=== PATIENT | female | born 1945 | race Caucasian/White ===

== ENCOUNTER 2017-01-07 05:14 | Day surgery (SDC) | payer OTHER ==
--- NOTE | 2017-01-06 13:38 | EKG Report ---
Test Performed on : 01/06/2017 12:52:24 PM Test Reason : PAT Blood Pressure : / mmHG Vent. Rate : 075 BPM Atrial Rate : 075 BPM P-R Int : 166 ms QRS Dur : 082 ms QT Int : 394 ms P-R-T Axes : 046 056 040 degrees QTc Int : 439 ms Normal sinus rhythm. Normal ECG No previous ECGs available Confirmed by Gideon Greco MD ([id number]) on 01/06/2017 9:57:17 PM
[2017-01-06 13:45] LABS: HEMATOCRIT 40.6 % (37.0-47.0); MCH 31.9 PG (27-31); MCHC 34.5 g/dL (33-37); MCV 92.5 FL (81-99); MPV 10.7 FL (7.4-10.4); RBC 4.39 XMIL (4.2-5.4)
[2017-01-06 13:54] LABS: AGAP 10; BUN 17 mg/dL (8-22); CALCIUM 9.4 mg/dL (8.8-10.2); CHLORIDE 103 mmol/L (98-107); COSMO 278; POTASSIUM 3.9 mmol/L (3.5-5.1); SODIUM 139 mmol/L (136-145); TCO2 26 mmol/L (25-35)
[2017-01-06 14:07] LABS: ALBUMIN 4.3 g/dL (3.5-5.0); ALKALINE PHOSPHATASE 39 U/L (32-104); DIRECT BILIRUBIN < 0.20 mg/dL (0.00-0.20); GOT 21 U/L (10-30); GPT 16 U/L (10-36); LIPASE 25 U/L (13-60); TOTAL PROTEIN 7.2 g/dL (6.3-8.3)
[2017-01-07] MEDS ORDERED: REGLAN ONE (05:24)
[2017-01-07] MEDS ORDERED: PEPCID ONE (05:24)
[2017-01-07] MEDS ORDERED: LR 1,000 ML ONE ×3 (05:24→09:33)
[2017-01-07] MEDS ORDERED: KEFZOL 1 GM/D5W 50 ML ONE (05:25)
[2017-01-07] MEDS ORDERED: SODIUM CHLORIDE 0.9% ONE (06:24)
[2017-01-07] MEDS ORDERED: MARCAINE 0.25% PF/EPI 1:200,000 ONE (06:25)
[2017-01-07] MEDS ORDERED: DIPRIVAN 1% ONE (06:54)
[2017-01-07] MEDS: MORPHINE ONE ×4 (09:05→09:42)
[2017-01-07] MEDS ORDERED: PHENERGAN ONE (09:21)
[2017-01-07] MEDS ORDERED: DECADRON ONE (09:33)
[2017-01-07] MEDS ORDERED: QUELICIN (DOSE) ONE (09:33)
[2017-01-07] MEDS ORDERED: XYLOCAINE-MPF 2% ONE (09:33)
[2017-01-07] MEDS ORDERED: ZOFRAN ONE ×2 (09:33→11:56)
[2017-01-07] MEDS ORDERED: NORCURON ONE (09:33)
[2017-01-07] MEDS ORDERED: ZOFRAN IV PRN (10:05)
[2017-01-07] MEDS ORDERED: NORCO-7.5 PO PRN (10:05)
--- NOTE | 2017-01-07 10:18 | OPERATIVE NOTE ---
PROCEDURE DATE: 01/07/2017 PREOPERATIVE DIAGNOSIS: Symptomatic cholelithiasis. POSTOPERATIVE DIAGNOSIS: Symptomatic cholelithiasis. PROCEDURES PERFORMED: Laparoscopic cholecystectomy with attempted cholangiogram. ESTIMATED BLOOD LOSS: Was 10 mL. SPECIMENS: Gallbladder. ANESTHESIA: General. OPERATIVE INDICATION: A 71-year-old female with episodic colicky right upper quadrant pain with worsening symptoms. She has had symptoms for several months. LFTs are normal. OPERATIVE FINDINGS: There is a chronically inflamed gallbladder with approximately 1 cm stones throughout, with impacted stones in the cystic duct and infundibulum. Findings of intraoperative cholangiogram. There appeared to be a chronically proximally dilated and occluded cystic duct with no flow of contrast in the common bile duct secondary to this. DESCRIPTION OF PROCEDURE: Risks, benefits, and alternatives were discussed with the patient and she consented to the procedure. She was seen in the preoperative area. Surgery being performed was confirmed. She was taken to the operating room, placed supine position. General anesthesia was induced without complication. All bony prominence were padded and placed in neutral position. Her abdomen is prepped with chlorhexidine solution and draped in the usual fashion. The pre- incisional antibiotics were administered. After time-out was performed between nursing, surgical, anesthesia staff, all agreed on procedure to be performed. Periumbilical block was performed with local anesthetic. She had a previous infraumbilical scar and we made a curvilinear incision along the same scar and dissected down to the level of the fascia. The fascia was entered along the midline and opened fashion a 12 mm Yan trocar was placed. The abdomen was insufflated 15 mmHg. We inspected the abdomen. There is no evidence of underlying injury from access to the abdomen and no other abnormalities noted in the abdomen. We then placed three 5 mm trocars after infiltration of the peritoneum at the epigastric location, one in midclavicular line off the costal margin and one more laterally. Using a locking grasper, we grasped the gallbladder. There were some omental adhesions up to the gallbladder. This was taken down electrocautery and bluntly. We grasped with a locking grasper, retracted the gallbladder cephalad. The duodenum was mildly adherent to the infundibulum as well. We stripped this down with care to protect the duodenum. There is a very dilated infundibulum and cystic duct, an enlarged cystic artery coursing over this triangle. Starting laterally and progressing medially, we stripped down inflammatory adhesions. We identified the cystic artery which was quite prominent and impeding further dissection we doubly clipped this and divided it. This facilitated retraction of the infundibulum down to the patient's right. We are able to dissect out the triangle and establish the critical view of safety with the liver visualized through this. There was no other structures behind this. At the infundibulum cystic duct junction, there was very dilated, greater than a cm, with stones visualized in the cystic duct. We could not milked the free. As such, we were able to place a clip occluding the infundibulum of the gallbladder, divided the infundibulum, and milk a large stone out and crushed this and brought it out through this is a 5 mm trocar. There are no other stones noted. At this point, we attempted to perform a cholangiogram with the above findings. It did appear to be chronically occluded distally, although I did not recognize any stones remaining here. There was extravasation of contrast out of the cystic duct, which was felt to be due to the distal obstruction of the cystic duct. After decompression of the cystic duct, we were able to get 3 clips fully across the cystic duct occluding it well. We then removed the gallbladder from the gallbladder fossa with electrocautery. It was quite inflamed and adherent and very distended we made a small opening. Some bile was spilled, but we suctioned this free. No stones were spilled. Removed in its entirety. Placed in an EndoCatch bag. We then copiously irrigated the abdomen, inspected the gallbladder fossa, and cauterized some areas of a raw surface, although there was no real active bleeding noted. Again, inspected the cystic duct. It was completely occluded with no bile leakage. Given the dilated nature, elected to leave a Branden drain. It was brought out through the lateral-most port, secured with 2-0 nylon suture. Irrigated the abdomen again. Removed the remaining trocars under direct visualization. Desufflated the abdomen and brought the gallbladder out through the umbilical incision. We closed the fascia with 0 Vicryl sutures. Closed skin with 4-0 Monocryl. Dermabond was applied. All sponge and needle counts were correct x2. Transferred to PACU in good condition. I spoke with the family. [facility]
[2017-01-07 11:18] VITALS: BP 141/72
== END 2017-01-07 12:15 | disposition home or self-care (01) ==
LOC: OPS 05:14
PROVIDERS: ATTEND Surgery
DX: K80.10 Calculus of gallbladder with chronic cholecystitis without obstruction (principal)
CPT/HCPCS: 76000; 80048; 80076; 83690; 85027; 88304; 93005; 93010; C1751; J0330; J0690; J1100; J2270; J2405; J2550; J7120; Q9966